=== PATIENT | male | born 1960 | race Caucasian/White ===

== ENCOUNTER 2022-06-05 08:46 | Outpatient (CLI) | payer OTHER, SELFPAY ==
[2022-06-05 13:56] LABS: Iron* 102 ug/dL (49-181)
[2022-06-05 14:27] LABS: PSA Screen* 0.94 ng/mL (0.10-4.00)
[2022-06-05 14:32] LABS: Total Iron Binding Capacity 387 ug/dL (261-462)
[2022-06-05 14:57] LABS: Percent Iron Saturation 26 % (20-50)
[2022-06-05 16:01] LABS: Albumin* 5.1 g/dL (3.3-5.0); Chloride* 105 mmol/L (96-114); Potassium* 4.6 mmol/L (3.6-5.1); Sodium* 140 mmol/L (135-149)
[2022-06-05 16:03] LABS: Cholesterol* 179 mg/dL (90-199)
[2022-06-05 16:04] LABS: Alanine Aminotransferase* 30 U/L (4-50); Alkaline Phosphatase* 70 U/L (40-150); Aspartate Amino Transferase* 29 U/L (12-35); Bilirubin Total* 0.9 mg/dL (0.1-1.5); Blood Urea Nitrogen* 21 mg/dL (7-30); Calcium* 10.1 mg/dL (8.4-10.6); Carbon Dioxide* 21 mmol/L (20-32); Creatinine* 0.9 mg/dL (0.5-1.5); Estimated Glomerular Filt Rate 97 ml/min; Glucose* 119 mg/dL (60-115); Total Protein* 7.7 g/dL (6.0-8.3); Triglycerides* 243 mg/dL (40-149)
[2022-06-05 16:05] LABS: HDL Cholesterol* 54 mg/dL (>=40); LDL Cholesterol Calculated 76 mg/dL (<100)
[2022-06-05 16:54] LABS: Vitamin B12* 598 pg/mL (243-894)
[2022-06-06 03:10] LABS: Vitamin B12* 605 pg/mL (243-894)
== END 2022-06-05 08:47 | disposition home or self-care (01) ==
PROVIDERS: PCP Physician Assistant Medical; Visit Provider Physician Assistant Medical
DX: Z00.00 Encounter for general adult medical examination without abnormal findings (principal); D64.9 Anemia, unspecified; Z13.6 Encounter for screening for cardiovascular disorders; Z12.5 Encounter for screening for malignant neoplasm of prostate; Z13.29 Encounter for screening for other suspected endocrine disorder
CPT/HCPCS: 80053; 80061; 82607; 83540; 83550; 84153; 84443

== ENCOUNTER 2022-06-27 11:57 | Outpatient (CLI) | payer OTHER, SELFPAY ==
[2022-06-29 17:02] LABS: Folate, Serum >22.3 ng/mL (>=5.9)
== END 2022-06-27 11:58 | disposition home or self-care (01) ==
LOC: LKVREF 11:57
PROVIDERS: PCP Physician Assistant Medical; Visit Provider Physician Assistant Medical
DX: D64.9 Anemia, unspecified (principal)
CPT/HCPCS: 82746